=== PATIENT | male | born 1970 | race Caucasian/White ===

== ENCOUNTER → 2018-05-16 08:51 | Outpatient (CLI) | payer OTHER, SELFPAY ==
[2018-05-16 08:07] VITALS: BMI 29.6
[2018-05-16 10:08] LABS: Hemoglobin A1c 9.7 % (4.2-6.3)
[2018-05-16 10:13] LABS: ALB/GLOB Ratio 1.1 RATIO (0.9-2.4); AST(SGOT) 37 U/L (15-37); Alanine Aminotransfer ALT/SGPT 65 U/L (16-61); Albumin, Serum 3.8 g/dL (3.2-5.0); Alkaline Phosphatase 68 U/L (45-117); Anion Gap 7 (5-15); BUN 17 mg/dL (7-18); BUN/Creat Ratio 19.3 RATIO (10-20); Calcium,Total 9.1 mg/dL (8.5-10.1); Chloride 103 mmol/L (98-107); Creatinine, Serum 0.88 mg/dL (0.70-1.30); EST Glomerular Filtration Rate 99 mL/min (>60); Est Glom Filt Rate - Afr Amer 120 mL/min (>60); Globulin 3.5 g/dL (2.2-4.2); Glucose 203 mg/dL (74-106); Potassium 4.4 mmol/L (3.5-5.1); Protein, Total 7.3 g/dL (6.4-8.2); Sodium Level 137 mmol/L (136-145)
--- OUTSIDE RECORDS SUMMARY | 2018-07-21 00:11 | XMS RPT_ITS ---
:1970 Author Organization [facility] Care Team Providers Name Role Phone CHOLO HECTOR Admitting Unavailable CHOLO HECTOR Attending Unavailable CHOLO HECTOR Primary Care Unavailable CHOLO HECTOR Consulting Unavailable PROVIDER, UNKNOWN Consulting Unavailable PROVIDER, UNKNOWN Consulting Unavailable PROVIDER, UNKNOWN Consulting Unavailable [facility] Admitting [facility] Attending Un[facility] Primary Care Unavailable CHOLO HECTOR Consulting Unavailable PROVIDER, UNKNOWN Consulting Unavailable PROVIDER, UNKNOWN Consulting Unavailable PROVIDER, UNKNOWN Consulting Unavailable Thalia Carrillo EYEDOTTER-C Attending Unavailable Cholo Hector Referring Unavailable Thalia Carrillo EYEDOTTER-C Attending Unavailable Thalia Carrillo EYEDOTTER-C Referring Unavailable Cholo Hector Primary Care Unavailable Thalia Carrillo EYEDOTTER-C Attending Unavailable PROBLEMS PROBLEMS DATE TYPE CONDITION / CODE ATTENDING STATUS SOURCE 05/16/2018 Unknown E11.65 - Type 2 Thalia Carrillo Active [place] diabetes mellitus [facility]EDOTTER-[facility] / E11.65(ICD-10) Repository 11/26/2017 Admitting Unspecified CHOLO HECTOR Active [facility] findings [facility] R8290(ICD-10) Repository 11/26/2017 Principle Unspecified CHOLO HECTOR Active Fer Pomyanene Diagnosis abnormal findings [facility] R8290(ICD-10) Repository PROCEDURES PROCEDURES No Procedure Records FoundRESULTS RESULTS ENDOCRINOLOGY VISIT Observed: 05/16/2018 Status: F Source: [place] RE[place] 12:25 PM [facility] [place] REPOSITORY [facility] [address] [place] [address] OFFICE VISIT Date of Service: 05/16/18 MR#: [id number] Acct: [id number] Name: RICKEY GUTIERREZ Rep #: [id number] : 1970 Provider: Thalia Carrillo NP Age/Sex: 47/M [place] [facility] [place] Signed HPI History of present illness Rickey Gutierrez is a 47 year old male who presents as a follow up for diabetes type 2. Initial visit one month ago. Diagnosed in 2014. Reports his level of control has always been too high. Checking BG 3-5 time daily.Diabetes currently treated with oral agents including metformin, glyburide and Januvia. Reports taking medication as directed. Since last visit he has recorded his diet, BG readings and activity. He has noted following improved diet makes much better outcomes. He did check BG in pairs as well. At time of visit: -Pt denies symptoms of hypertensive emergency (CP,SOB,MUNGUIA, or blurred vision) and hypotension(dizziness or lightheadedness) -Pt denies symptoms of hypoglycemia ( sweaty, confusion, anxiety, tremor, hunger, palpitations) and hyperglycemia ( polydipsia, polyuria) -Pt denies potential medication adverse effect. Hypoglycemia Aware of hypoglycemia: When awake Able to self treat low BG: Yes Frequent low Blood sugar: No Has supply of glucagon: no Diet No specific diet Did follow vegan diet for a few years but not now No carb counting SMBG 120 -310 Average 200 Exam Const General: comfortable, no acute distress Nutritional Appearance: well nourished Orientation: oriented x3 HENMT Head: normal to inspection, atraumatic Ears: hearing grossly normal bilaterally Nose: external nose normal Face and sinus: normal facial exam Mouth: oral mucosae normal, moist mucous membranes Teeth and gingiva: dentition normal Eyes General: appearance normal, both eyes and all related structures Eyelids: eyelids normal Conjunctivae: conjunctivae normal Sclera: sclerae normal Pupils: PERRL Resp Effort AND Inspection: normal respiratory effort, able to speak in complete sentences, symmetric chest movement Auscultation: Bilateral: Clear to Auscultation Cardio Rate: regular rate Rhythm: regular rhythm Heart Sounds: S1 normal, S2 normal, no murmurs GI Inspection: normal to inspection Palpation: soft, no guarding Skin General: turgor normal Trauma: no lacerations or abrasions Diabetic Foot Pulses: L dorsalis pedis pulse: normal, R dorsalis pedis pulse: normal Monofilament test: Left foot: normal, Right foot: normal Neuro General: oriented x3, moves all extremities Cognition: normal cognition Speech: speech normal Gait: normal gait Extrem General: normal to inspection, no pedal edema Psych Appearance: grossly normal Mental Status: mental status grossly normal Mood: congruent mood Affect: normal affect Speech and Movement: speech and movement normal Attitude: cooperative Thought Process: normal Thought Content: normal Judgment: judgment good Type: type 2 Glucose control symptoms: Reports high fasting glucose and high post-meal glucose Weight and fatigue symptoms: Denies snoring Cardiopulmonary symptoms: Denies chest pain at rest, dyspnea on exertion, lightheadedness or myalgias GI symptoms: Denies constipation, diarrhea, nausea/dyspepsia or vomiting Skin and extremity symptoms: Denies erectile dysfunction Other symptoms: Denies blurry vision or change in vision Pertinent visit history: Denies recent visit to ER, recent hospital admission or recent 911 calls Intake Vital Signs05/16/18 Body Mass Index (BMI) 29.6 Intake Visit Reasons: 1 M FU Visual Merchandise Manager Required: No Accompanied by: Self Allergies No Known Allergies Allergy (Unverified 05/16/18 08:05) Medications atorvastatin 40 mg tablet 40 mg PO DAILY 04/11/18 [History Confirmed 05/16/18] metoprolol tartrate 50 mg tablet 50 mg PO DAILY tab 04/11/18 [History Confirmed 05/16/18] sildenafil 25 mg tablet 25 mg PO DAILY PRN 04/11/18 [History Confirmed 05/16/18] sitagliptin 100 mg tablet 100 mg PO DAILY 04/11/18 [History Confirmed 05/16/18] glyburide 5 mg tablet See Rx Instructions PO .COMPLEX #120 tab 05/16/18 [Rx Confirmed 05/16/18] metformin 1,000 mg tablet 1,000 mg PO .COMPLEX #75 tab 05/16/18 [Rx Confirmed 05/16/18] Nurse's Note: blood sugars : low : 126 high : 335 [facility] Medical History High triglycerides (Acute) Hyperlipidemia (Acute) Type 2 diabetes mellitus (Acute) HTN (hypertension) (Chronic) Family History Mother Hypertension Hyperlipidemia Social History Smoking Status: Former smoker alcohol intake: never substance use type: does not use ROS Const Constitutional: No anorexia, body ache, chills, fatigue, fever(s), frequent falls, decreased energy, malaise, night sweats, weakness, weight change, sleep problems, abnormal sleep pattern, change in appetite, other, headache(s), snoring or excessive sweating Eyes Eyes: No blurry vision, change in vision, double vision, discharge, dry eyes, bulging eyes, floaters, visual disturbances, eye pain, light sensitivity, spots in vision, tunnel vision or other ENT ENT: No abnormal hearing, ear pain, ear discharge, ear pressure, hearing loss, tinnitus, dizziness/vertigo, balance problems, nosebleed/epistaxis, nasal congestion, nasal obstruction, nose pain, sinus pressure, sinus pain, nasal discharge, post nasal drip, headache(s), facial pain, dental pain, dry mouth, bad breath, hoarseness, lip swelling, mouth lesions, mouth pain, sore throat, tongue swelling, throat swelling, other, difficulty swallowing or neck pain Resp Respiratory: No cough, change in phlegm color, chest congestion, excessive phlegm production, hemoptysis, pain on inspiration, shortness of breath, pain with cough, snoring, stridor, wheezing or other Cardio Cardiology: No chest pain at rest, chest pain with exertion, leg pain with exertion, excessive sweating, shortness of breath, dyspnea on exertion, generalized swelling, irregular heart rhythm, lightheadedness, orthopnea, radiating jaw, neck or arm pain, fast heart rate, slow heart rate, palpitations or other Gastro GI: No abdominal pain, belching, bloating, change in bowel habits, change in stool character, coffee ground emesis, constipation, cramping, diarrhea, heartburn, difficulty swallowing, feeling full early, excessive flatus, incontinent of stools, Vomiting blood/hematemesis, blood in stool, loose stools, Black,tarry stools, nausea/dyspepsia, pain with swallowing, vomiting or other Genitourinary Male: No difficulty urinating, burning urination, painful urination, urinary incontinence, urinary frequency, urinary urgency, urinary hesitancy, urinary retention, blood in urine, Frequent nighttime urination/ nocturia, post void dribbling, suprapubic fullness, side pain, sexual problems, genital lesions, genital itching, erectile dysfunction, penile discharge, difficulty with ejaculations, blood in semen, scrotal swelling, testicle lump, testicle pain or other Musc Musculoskeletal: No abnormal walking, joint pain, back pain, deformity, joint swelling, limited range of motion, loss of height, muscle cramps, muscle weakness, decreased muscle mass, body aches, neck pain, numbness, radiating pain into limb, stiffness, tingling or other Skin Skin: No acne, hair loss, change in hair, nail changes, boil, change in skin color, dry skin, redness, excessive hair growth, yellowing of the skin, lesions, itching, rash, skin pain, skin ulcer, sores, skin swelling, wounds or other Breast Breast: No other Neuro Neurology: No frequent falls, weakness, visual disturbances, abnormal hearing, headache(s), abnormal walking, numbness or tingling Psych Psychiatric: No abnormal sleep pattern, No change in appetite Endo Endocrine: No fatigue, other or excessive sweating Aller/Imm Allergy/Immunologic: No lip swelling, tongue swelling, throat swelling, wheezing or itchy eyes Assessment AND Plan Problems 1. Uncontrolled type 2 diabetes mellitus with hyperglycemia E11.65 2. Hyperlipidemia associated with type 2 diabetes mellitus E11.69; E78.5 Plan Uncontrolled type 2 diabetes mellitus with hyperglycemia Hyperlipidemia associated with type 2 diabetes mellitus HTN, goal below 130/80 Plan Diabetes: BG records for review. Checking 3-5 time per day. Instructed patient on carb counting, how to read labels, need for 3 month appointments, routine lab tests,, and checking of BG intensively Reports taking medication as directed without side effect. HTN: BP today 129/84. Currently taking metoprolol 50mg daily. Enc to monitor diet for sodium, lose weight and routine exercise Hyperlipidemia: Is on statin. Thinks his cholesterol is well controlled. No records or medical chart for this patient. Patient Instructions Begin carb counting meals Check Bg before each meal and 2 hours post meal. RTC -6 weeks for further review of data. Labs to be drawn next visit. Control portions Food selections should be healthy Choose more low carb vegetables Avoid snacks and desserts. Drink water Exercise daily Eat more fresh foods, not canned or processed Eat more slowly Patient Instructions Has been taking metformin 2500mg daily so will write order to reflect this BG recorded for meals, including before and after meal readings. Is noted to have increase in BG for meals. Will increase glyburide to allow for improved control. Orders Orders: Medications New: Changed: To: metformin Take one at breakfast, 1/2 tablet lunch and 1 tablet at evening meal.1,00 0 mg PO ; 75 tabs 6RF Plan Detail Additional Comments 1. Please schedule follow up in 1 month 2. Lab work one week before appointment. 3. Discussed importance of regular exercise and recommend starting or continuing a regular exercise program for good health. 4. The patient was encouraged to lose weight for good health 5. The importance of monitoring blood sugar regularly was reviewed. 6. The importance of monitoring the HBA1c level regularly was reviewed. 7. The importance of prper foot care and regularly checking feet to prevent sores and loss of limbs was reviewed. 8. The importance of keeping BP at or below 130/80 to prevent stroke, heart attacks, kidney failure, blindness was reviewed. Spent approximately 30 minutes with patient with over 50% of time spent in discussion and counseling regarding medication adjustment, symptoms and treatment of hypoglycemia, diet adherence, and checking BG before driving. Coding Level of Care Code Off vis,est,level 4 Diagnoses Uncontrolled type 2 diabetes mellitus with hyperglycemia E11.65 Glycemic state: with hyperglycemia Hyperlipidemia associated with type 2 diabetes mellitus E11.69; E78.5 05/16/18 1225 <Electronically signed by Thalia MOREIRA> Date Thalia MOREIRA Cosigner Signature: Date (if applicable) CC: HEMOGLOBIN A1C Collected: 05/16/2018 Status: F Source: [place] 9:00 AM [facility] REPOSITORY TYPE CODE TESTS RESULT OUT OF RANGE REFERENCE UNITS LAB L501.9985 4.2-6.3 % High HGB A1C 9.7 Performed By: #### L501.9985 #### [facility] [address] [place], [address] COMPREHENSIVE METABOLIC Collected: 05/16/2018 Status: F [facility]:00 AM [facility] REPOSITORY TYPE CODE TESTS RESULT OUT OF RANGE REFERENCE UNITS LAB L501.0100 74-106 mg/dL High GLU 203 Result Comment: Glucose result greater than or equal to 200 mg/dL suggests DIABETES MELLITUS per A.D.A. criteria. Please note revised GLUCOSE reference range effective 2017. LAB L501.1000 7-18 mg/dL Normal BUN 17 LAB L501.1100 0.70-1.30 mg/dL Normal CREAT,SERUM 0.88 Result Comment: The validity of the calculated GFR AND GFRAA in patients over 70 years has not been determined. Clinical correlation is essential. LAB L501.1110 >60 mL/min Normal EST GFR 99 Result Comment: Non- GFR Calc LAB L501.1115 >60 mL/min Normal EST GFR - AA 120 Result Comment: GFR Calc LAB L501.1300 10-20 RATIO Normal BUN/CRE 19.3 LAB L501.1500 6.4-8.2 g/dL T Normal PROT 7.3 LAB L501.1800 3.2-5.0 g/dL Normal ALB 3.8 LAB L501.1950 2.2-4.2 g/dL Normal GLOB 3.5 LAB L501.2000 0.9-2.4 RATIO Normal A/G 1.1 LAB L501.2200 8.5-10.1 mg/dL CA Normal 9.1 LAB L501.4100 15-37 U/L Normal AST 37 LAB L501.4305 45-117 U/L Normal ALK P 68 LAB L501.4405 16-61 U/L High ALT 65 LAB L501.4600 0.20-1.00 mg/dL T Normal BILI 0.50 LAB L501.5300 136-145 mmol/L NA Normal 137 LAB L501.5600 3.5-5.1 mmol/L K Normal 4.4 LAB L501.5900 98-107 mmol/L CL Normal 103 LAB L501.6100 21.0-32.0 mmol/L Normal CO2 27.0 LAB L501.6200 5-15 Normal GAP 7 Performed By: #### L500.4050 #### [facility] [address] [place], [address] ENDOCRINOLOGY VISIT Observed: 04/12/2018 Status: F Source: [place] REPORT 12:15 PM [facility] [place] REPOSITORY [facility] [address] [place] [address] OFFICE VISIT Date of Service: 04/11/18 MR#: [id number] Acct: [id number] Name: RICKEY GUTIERREZ Rep #: [id number] : 1970 Provider: Thalia Carrillo NP Age/Sex: 47/M [place] [facility] [place]: Signed HPI History of present illness Rickey Gutierrez is a 47 year old male who presents as a consult for diabetes type 2. Diagnosed in 2014. Reports his level of control has always been too high. Checking BG 1 time daily.Diabetes currently treated with oral agents including metformin, glyburide and Januvia. Reports taking medication as directed. At time of visit: -Pt denies symptoms of hypertensive emergency (CP,SOB,MUNGUIA, or blurred vision) and hypotension(dizziness or lightheadedness) -Pt denies symptoms of hypoglycemia ( sweaty, confusion, anxiety, tremor, hunger, palpitations) and hyperglycemia ( polydipsia, polyuria) -Pt denies potential medication adverse effect. Hypoglycemia Aware of hypoglycemia: When awake Able to self treat low BG: Yes Frequent low Blood sugar: No Has supply of glucagon: no Diet No specific diet Did follow vegan diet for a few years but not now No carb counting SMBG 160-310 Average 200 Type: type 2 Glucose control symptoms: Reports high fasting glucose and high post-meal glucose Weight and fatigue symptoms: Reports weight gain; denies snoring Cardiopulmonary symptoms: Denies chest pain at rest, dyspnea on exertion, lightheadedness or myalgias GI symptoms: Denies constipation, diarrhea, nausea/dyspepsia or vomiting Skin and extremity symptoms: Denies erectile dysfunction or tingling/numbness/burning Other symptoms: Denies blurry vision or change in vision Pertinent visit history: Denies recent visit to ER, recent hospital admission or recent 911 calls Self monitoring: Yes Dietary compliance: Diabetes: other Diabetes education in past year: No Glucose testing: demonstrates correct use of meter, understands testing schedule Sick day education - understands ketone testing: No Physical activity: regular Exam Const General: comfortable, no acute distress Nutritional Appearance: well nourished O[facility]: [facility]: normal to inspection, atraumatic Ears: hearing grossly normal bilaterally Nose: external nose normal Face and sinus: normal facial exam Mouth: oral mucosae normal, moist mucous membranes Teeth and gingiva: dentition normal Eyes General: appearance normal, both eyes and all related structures Eyelids: eyelids normal Conjunctivae: conjunctivae normal Sclera: sclerae normal Pupils: PERRL Resp Effort AND Inspection: normal respiratory effort, able to speak in complete sentences, symmetric chest movement Auscultation: Bilateral: Clear to Auscultation Cardio Rate: regular rate Rhythm: regular rhythm Heart Sounds: S1 normal, S2 normal, no murmurs GI Inspection: normal to inspection Palpation: soft, no guarding Skin General: turgor normal Trauma: no lacerations or abrasions Diabetic Foot Pulses: L dorsalis pedis pulse: normal, R dorsalis pedis pulse: normal Monofilament test: Left foot: normal, Right foot: normal Neuro General: oriented x3, moves all extremities Cognition: normal cognition Speech: speech normal Gait: normal gait Extrem General: normal to inspection, no pedal edema Psych Appearance: grossly normal Mental Status: mental status grossly normal Mood: congruent mood Affect: normal affect Speech and Movement: speech and movement normal Attitude: cooperative Thought Process: normal Thought Content: normal Judgment: judgment good Intake Vital Signs04/11/18 Height 5 ft 10 in 04/11/18 Weight: 206 lb 8 oz 04/11/18 Body Mass Index (BMI) 29.6 04/11/18 Blood Pressure 136/92 H 04/11/18 Blood Pressure Location Lt popliteal 12/12/18 Blood Pressure Position Sitting Intake Visit Reasons: REFERRAL Visual Merchandise Manager Required: No Accompanied by: Self Allergies No Known Allergies Allergy (Unverified 04/11/18 07:53) Medications atorvastatin 40 mg tablet 40 mg PO DAILY 04/11/18 [History Confirmed 04/11/18] glyburide 5 mg tablet 5 mg PO BID 04/11/18 [History Confirmed 04/11/18] metformin 1,000 mg tablet 1,000 mg PO BID 04/11/18 [History Confirmed 04/11/18] metoprolol tartrate 50 mg tablet 50 mg PO DAILY tab 04/11/18 [History Confirmed 04/11/18] sildenafil 25 mg tablet 25 mg PO DAILY PRN 04/11/18 [History Confirmed 04/11/18] sitagliptin 100 mg tablet 100 mg PO DAILY 04/11/18 [History Confirmed 04/11/18] Nurse's Note: blood sugars : low : 167 high : 309 pt checking < 1 x qd PFSH Medical History High triglycerides (Acute) Hyperlipidemia (Acute) Type 2 diabetes mellitus (Acute) HTN (hypertension) (Chronic) Family History Mother Hypertension Hyperlipidemia Social History Smoking Status: Former smoker alcohol intake: never substance use type: does not use ROS Const Constitutional: No anorexia, body ache, chills, fatigue, fever(s), frequent falls, decreased energy, malaise, night sweats, weakness, weight change, sleep problems, abnormal sleep pattern, change in appetite, other, headache(s), snoring or excessive sweating Eyes Eyes: Positive for other (eye exam 07/31/17); no blurry vision, change in vision, double vision, discharge, dry eyes, bulging eyes, floaters, visual disturbances, eye pain, light sensitivity, spots in vision or tunnel vision ENT ENT: No abnormal hearing, ear pain, ear discharge, ear pressure, hearing loss, tinnitus, dizziness/vertigo, balance problems, nosebleed/epistaxis, nasal congestion, nasal obstruction, nose pain, sinus pressure, sinus pain, nasal discharge, post nasal drip, headache(s), facial pain, dental pain, dry mouth, bad breath, hoarseness, lip swelling, mouth lesions, mouth pain, sore throat, tongue swelling, throat swelling, other, difficulty swallowing or neck pain Resp Respiratory: No cough, change in phlegm color, chest congestion, excessive phlegm production, hemoptysis, pain on inspiration, shortness of breath, pain with cough, snoring, stridor, wheezing or other Cardio Cardiology: No chest pain at rest, chest pain with exertion, leg pain with exertion, excessive sweating, shortness of breath, dyspnea on exertion, generalized swelling, irregular heart rhythm, lightheadedness, orthopnea, radiating jaw, neck or arm pain, fast heart rate, slow heart rate, palpitations or other Gastro GI: Positive for abdominal pain (L lower); no belching, bloating, change in bowel habits, change in stool character, coffee ground emesis, constipation, cramping, diarrhea, heartburn, difficulty swallowing, feeling full early, excessive flatus, incontinent of stools, Vomiting blood/hematemesis, blood in stool, loose stools, Black,tarry stools, nausea/dyspepsia, pain with swallowing, vomiting or other Genitourinary Male: No difficulty urinating, burning urination, painful urination, urinary incontinence, urinary frequency, urinary urgency, urinary hesitancy, urinary retention, blood in urine, Frequent nighttime urination/ nocturia, post void dribbling, suprapubic fullness, side pain, sexual problems, genital lesions, genital itching, erectile dysfunction, penile discharge, difficulty with ejaculations, blood in semen, scrotal swelling, testicle lump, testicle pain or other Musc Musculoskeletal: No abnormal walking, joint pain, back pain, deformity, joint swelling, limited range of motion, loss of height, muscle cramps, muscle weakness, decreased muscle mass, body aches, neck pain, numbness, radiating pain into limb, stiffness, tingling or other Skin Skin: No acne, hair loss, change in hair, nail changes, boil, change in skin color, dry skin, redness, excessive hair growth, yellowing of the skin, lesions, itching, rash, skin pain, skin ulcer, sores, skin swelling, wounds or other Breast Breast: No other Neuro Neurology: No frequent falls, weakness, visual disturbances, abnormal hearing, headache(s), abnormal walking, numbness or tingling Psych Psychiatric: No abnormal sleep pattern, No change in appetite Endo Endocrine: No fatigue, other or excessive sweating Aller/Imm Allergy/Immunologic: No lip swelling, tongue swelling, throat swelling, wheezing or itchy eyes Assessment AND Plan Problems 1. Uncontrolled type 2 diabetes mellitus with hyperglycemia E11.65 2. Hyperlipidemia associated with type 2 diabetes mellitus E11.69; E78.5 3. HTN, goal below 130/80 I10 Plan Diabetes: Minimal BG records for review. Only checking one time per day. Instructed patient on carb counting, how to read labels, need for 3 month appointments, routine lab tests,, and checking of BG intensively Reports taking medication as directed without side effect. HTN: BP today 136/92. Currently taking metoprolol 50mg daily. Enc to monitor diet for sodium, lose weight and routine exercise Hyperlipidemia: Is on statin. Thinks his cholesterol is well controlled. No records or medical chart for this patient. Patient Instructions Begin carb counting meals Check Bg before each meal and 2 hours post meal. RTC 4-6 weeks for further review of data. Labs to be drawn next visit. Control portions Food selections should be healthy Choose more low carb vegetables Avoid snacks and desserts. Drink water Exercise daily Eat more fresh foods, not canned or processed Eat more slowly Plan Detail Additional Comments 1. Please schedule follow up in 4-6 weeks. 2. Lab work one week before appointment. 3. Discussed importance of regular exercise and recommend starting or continuing a regular exercise program for good health. 4. The patient was encouraged to lose weight for good health 5. The importance of monitoring blood sugar regularly was reviewed. 6. The importance of monitoring the HBA1c level regularly was reviewed. 7. The importance of proper foot care and regularly checking feet to prevent sores and loss of limbs was reviewed. 8. The importance of keeping BP at or below 130/80 to prevent stroke, heart attacks, kidney failure, blindness was reviewed. Spent approximately 30 minutes with patient with over 50% of time spent in discussion and counseling regarding medication adjustment, symptoms and treatment of hypoglycemia, diet adherence, and checking BG before driving. Coding Level of Care Code Off vis,new,level 3 Diagnoses Uncontrolled type 2 diabetes mellitus with hyperglycemia E11.65 Glycemic state: with hyperglycemia Hyperlipidemia associated with type 2 diabetes mellitus E11.69; E78.5 HTN, goal below 130/80 I10 Depression Screen PHQ-2/9 PHQ-2 Over the last 2 weeks, how often have you been bothered by any of the following problems? 1. Little interest or pleasure in doing things: not at all 2. Feeling down, depressed, or hopeless: not at all Total score: 0 If score is 2 or greater, continue Source: Developed by Drs. Arron Thompson, Vilma Peraza, Bob Mitchell and colleagues, with an educational jaqueline from [email or web address]. Scoring: Total Score Depression Severity Action 1-4 Minimal depression No action needed 5-9 Mild depression Repeat PHQ-9 at follow up 10-14 Moderate depression Make tx plan,consider counseling, fup, prescription 04/12/18 1215 <Electronically signed by Thalia MOREIRA> Date Thalia MOREIRA Cosigner Signature: Date (if applicable) CC: URINE TOTAL PROTEIN Collected: 11/26/2017 Status: F Source: [facility] POMERENE 24 HR 5:00 AM [facility] REPOSITORY TYPE CODE TESTS RESULT OUT OF REFERENCE UNITS RANGE LAB URINE ml VOLUME(LOINC ) URINE VOLUME 3000 LAB UR mg/dL PROTEIN(LOIN C) UR PROTEIN 8 LAB 24HR URINE 30 - 150 mg/24hr PROTEIN(LOIN C) High 24HR URINE 240 PROTEIN Performed By: #### [id number] #### [facility],[address] [place] [address] 24 HR CREATININE Collected: 11/26/2017 Status: F Source: [facility]ER POMERENE CLEARANCE, URINE 5:00 AM [facility] REPOSITORY TYPE CODE TESTS RESULT OUT OF REFERENCE UNITS RANGE LAB 24 HR CREATININE CLEARANCE, 24 HR URINE(LOINC) CREATININE CLEARANCE, URINE Result Comment: CREATININE CLEARANCE LAB HEIGHT(LOINC) inches HEIGHT 70 LAB WEIGHT(LOINC) lbs WEIGHT 210 LAB SURFACE AREA(LOINC) SURFACE AREA 2.96 LAB URINE VOLUME(LOINC) ml URINE VOLUME 3000 LAB UR CREAT(LOINC) mg/dl UR CREAT 66.4 LAB CREATININE(LOINC) 0.7 - 1.3 mg/dl CREATININE 0.7 LAB CREA CLEAR(LOINC) ml/min CREA CLEAR 115.5 LAB 24HR UR CREAT(LOINC) 800 - 2000 mg/24hrs 24HR UR CREAT 1992 Result Comment: SERUM CREATINE DRAWN 11/26/17@2948 Performed By: #### [id number] #### [facility],[address] [place] [address] ALLERGIES ALLERGIES DATE TYPE / CODE NAME / CODE REACTION SEVERITY SOURCE 05/16/2018 Drug No Known Unknown [facility] Allergy/4160 Allergies/F00 Hospital 81019(SNOMED 2843009(RXNOR Repository CT) M) ENCOUNTERS ENCOUNTERS ADMIT/DISCHARGE ACCOUNT ADMITTING ENCOUNTER LOCATION SOURCE NUMBER CLASS 05/25/2018/ [id number] [facility], Ambulatory [address] Repository 05/16/2018 [id number] [facility] ing:LAB Repository 05/16/2018/ [id number] [facility] [place] [facility] 04/11/2018/ [id number] Ambulatory BMSBuilding:B [place] 8 4 MS.[facility] Repository 11/26/2017/ [id number] CHOLO HECTOR Ambulatory [address] Repository PAYERS PAYERS ENCOUNTER GUARANTOR PAYER SUBSCRIBER SOURCE 05/16/2018 RICKEY Primary RICKEY [place] [id number] TR [place] [facility] STOCKERDOB: [address], Number: [id number] [address]Vsx: [id number] Repository Date:2545-16-47[address] ([address]) [id number] [place] [address]SI: 05/16/2018 Secondary NOT GIVENUNK [place] Insurance:SELF PAY [facility] Number: Effective Repository Date:2018-05-16 05/16/2018 RICKEY Primary RICKEY [place] [id number] TR [place] [facility] STOCKERDOB: [address], Number: [id number] [facility] [address]Rtw: [id number] Repository Date:6602-41-06MD [address] () [id number] [place] [address]WI: 05/16/2018 Secondary NOT GIVENUNK [place] Insurance:SELF PAY [facility] Number: Effective Repository Date:2018-05-14 04/11/2018 RICKEY A Primary RICKEY A Cornelio [id number] Insurance:AETNAPolicy STOCKERDOB: [facility] Number: [id number], [id number] [place]ository [place] [address]Lam: Date:2146-12-80[address]UZCHLOE PÉREZ () [address]FP: 04/11/2018 Secondary NOT GIVENUNK [place] Insurance:SELF PAY [facility] Number: Effective Repository Date:2018-04-11 11/26/2017 RICKEY A Primary RICKEY A Fer Beard STOCKERDOB: Insurance:AETNA STOCKERDOB: [facility] [id number] [facility] [id number] [facility] [address] Repository [address] [place] [address], Number: 309[place], [place] [id number]: Date:Plan Name:A1 ()
== END ==
PROVIDERS: Family Provider Family Medicine; PCP Family Medicine; Referring Provider Nurse Practitioner; Visit Provider Nurse Practitioner
DX: E11.65 Type 2 diabetes mellitus with hyperglycemia (principal)
CPT/HCPCS: 36415; 80053; 83036